=== PATIENT | female | born 1960 | race Caucasian/White ===

== ENCOUNTER → 2019-10-28 | Outpatient (CLI) | payer BC | LOC: MC.RAD 15:44 | DX: Z12.31 Encounter for screening mammogram for malignant neoplasm of breast (principal); N63.10 Unspecified lump in the right breast, unspecified quadrant ==

== ENCOUNTER → 2019-11-02 | Outpatient (CLI) | payer BC | LOC: MC.RAD 09:15 | DX: N63.12 Unspecified lump in the right breast, upper inner quadrant (principal) ==

== ENCOUNTER → 2019-11-11 | Outpatient (CLI) | payer BC | LOC: MC.RAD 12:51 | DX: N63.10 Unspecified lump in the right breast, unspecified quadrant (principal) ==